=== PATIENT | male | born 1995 | race Hispanic/Latino ===

== ENCOUNTER 2018-05-18 18:08 | Emergency (ER) | payer OTHER ==
[2018-05-18] MEDS ORDERED: Lidocaine 1% (PF) 30 ML VIAL ONE (19:33)
== END 2018-05-18 18:09 | disposition home or self-care (01) ==
LOC: ERS 18:08
DX: L60.0 Ingrowing nail (principal)
CPT/HCPCS: 11765; J2001

== ENCOUNTER 2021-04-04 18:33 | Emergency (ER) | payer OTHER ==
[2021-04-04] MEDS ORDERED: Xylocaine 1% w/ Epi 1:100K 10 ML VIAL ONE (19:21)
== END 2021-04-04 20:17 | disposition home or self-care (01) ==
LOC: ERS 18:33
DX: L05.01 Pilonidal cyst with abscess (principal)
CPT/HCPCS: 10080

== ENCOUNTER 2021-10-18 07:26 | Emergency (ER) | payer OTHER | END 2021-10-18 09:26 | disposition home or self-care (01) | LOC: ERS 07:26 | DX: H60.92 Unspecified otitis externa, left ear (principal); H61.21 Impacted cerumen, right ear; R03.0 Elevated blood-pressure reading, without diagnosis of hypertension | CPT/HCPCS: 99282 ==